=== PATIENT | male | born 1960 | race American Indian/Alaskan Native ===

== ENCOUNTER 2021-04-13 10:57 | Emergency (ER) | payer OTHER, MEDICAID ==
[2021-04-13 11:06] VITALS: BP 117/81
[2021-04-13] MEDS ORDERED: oxyCODONE /ACETAMINOPHEN 5-325MG TAB PO ONE (12:35)
[2021-04-13 13:25] LABS: Bacteria,Urine 2+ /HPF (Negative); Bilirubin,Urine NEG (Negative); Blood,Urine SM (Negative); Color,Urine Amber (Yellow); Mucus,Urine 2+ /HPF
--- NOTE | 2021-04-13 13:25 | Ultrasound Report ---
ULTRASOUND SCROTUM INDICATION / CLINICAL INFORMATION: left testicular pain. COMPARISON: None available. FINDINGS -- RIGHT: TESTIS: Size = 4.9 x 2.3 x 3.2 cm. - Appearance: Heterogeneous. - Cyst / Mass: None. - Color Doppler Flow: Increased at the testicle and epididymis. EPIDIDYMIS: Heterogeneous and enlarged. HYDROCELE: Mild/complex. VARICOCELE: None. FINDINGS -- LEFT: TESTIS: Size = 5.1 x 3.2 x 3.5 cm. - Appearance: Heterogeneous. - Cyst / Mass: None. - Color Doppler Flow: Heterogeneous and enlarged. EPIDIDYMIS: No significant abnormality. HYDROCELE: Mild/complex. VARICOCELE: None. ADDITIONAL FINDINGS: None. IMPRESSION: 1. Suspected bilateral epididymoorchitis. 2. Mild complex hydroceles bilaterally. Signer Name: Kye Hebert MD Signed: 04/13/2021 1:20 PM Workstation Name: [id number]
[2021-04-13 13:26] LABS: WBC,Urine > 182.0 /HPF (0.0-6.0)
[2021-04-13] MEDS ORDERED: LIDOCAINE-MPF (1%) 10 MG/1 ML VIAL 5 ML INFILTRATI ONE (13:52)
--- NOTE | 2021-04-13 13:57 | Emergency Department Report ---
ED General Adult HPI - General Chief complaint: Abdominal Pain Stated complaint: PENIS/GROIN Time Seen by Provider: 04/13/21 12:05 Source: patient Mode of arrival: Ambulatory Limitations: No Limitations - History of Present Illness Initial comments: 60-year-old -Italian male patient with history of hypertension presents with complaints of left testicular pain and swelling starting upon waking today. He rates his current pain as a 9/10 in severity. He denies any dysuria, hematuria, urinary frequency, penile discharge, abdominal pain, or lesions. No fever/chills/sweats or swollen hot joints per patient. He has not tried any medications for his symptoms. NKDA per patient. Severity scale (0 -10): 7 - Related Data Previous Rx's Medication Instructions Recorded Last Taken Type Acetaminophen/Codeine [Tylenol 1 tab PO Q6H PRN #10 tab 04/13/21 Unknown Rx /Codeine # 3 tab] Doxycycline Monohydrate 100 mg PO BID 10 Days #20 cap 04/13/21 Unknown Rx Ibuprofen [Motrin 800 MG tab] 800 mg PO Q8HR PRN #20 tablet 04/13/21 Unknown Rx levoFLOXacin [Levaquin TAB] 500 mg PO QDAY 7 Days #7 tablet 04/13/21 Unknown Rx metroNIDAZOLE [Flagyl] 2,000 mg PO ONCE 1 Days #4 tab 04/13/21 Unknown Rx Allergies Allergy/AdvReac Type Severity Reaction Status Date / Time No Known Allergies Allergy Verified 04/13/21 11:03 ED Review of Systems ROS: Stated complaint: PENIS/GROIN Other details as noted in HPI Constitutional: denies: chills, fever, malaise Gastrointestinal: denies: abdominal pain, nausea, vomiting, other (Denies rectal pain) Genitourinary: testicular pain, testicular mass. denies: urgency, dysuria, frequency, hematuria, discharge Musculoskeletal: denies: back pain Hematological/Lymphatic: denies: swollen glands ED Past Medical Hx - Medications Home Medications: Home Medications Medication Instructions Recorded Confirmed Last Taken Type Acetaminophen/Codeine [Tylenol 1 tab PO Q6H PRN #10 tab 04/13/21 Unknown Rx /Codeine # 3 tab] Doxycycline Monohydrate 100 mg PO BID 10 Days #20 cap 04/13/21 Unknown Rx Ibuprofen [Motrin 800 MG tab] 800 mg PO Q8HR PRN #20 tablet 04/13/21 Unknown Rx levoFLOXacin [Levaquin TAB] 500 mg PO QDAY 7 Days #7 tablet 04/13/21 Unknown Rx metroNIDAZOLE [Flagyl] 2,000 mg PO ONCE 1 Days #4 tab 04/13/21 Unknown Rx ED Physical Exam - General Limitations: No Limitations General appearance: alert, in no apparent distress - Head Head exam: Present: atraumatic, normocephalic - Eye Eye exam: Present: normal appearance - Respiratory Respiratory exam: Absent: respiratory distress - Cardiovascular Cardiovascular Exam: Present: regular rate - GI/Abdominal GI/Abdominal exam: Present: soft. Absent: tenderness - exam: Present: testicular tenderness, urethral discharge, scrotal swelling (Moderate swelling noted to left testicle with mild swelling to the right testicle) External exam: Absent: erythema, lesions - Neurological Exam Neurological exam: Present: alert, oriented X3 - Psychiatric Psychiatric exam: Present: normal affect, normal mood - Skin Skin exam: Present: warm, dry, intact, normal color. Absent: rash ED Course Vital Signs 04/13/21 11:04 Temperature 98.4 F Pulse Rate 96 H Respiratory 16 Rate Blood Pressure 117/81 O2 Sat by Pulse 98 Oximetry ED Medical Decision Making - Radiology Data Radiology results: report reviewed ULTRASOUND SCROTUM INDICATION / CLINICAL INFORMATION: left testicular pain. COMPARISON: None available. FINDINGS -- RIGHT: TESTIS: Size = 4.9 x 2.3 x 3.2 cm. - Appearance: Heterogeneous. - Cyst / Mass: None. - Color Doppler Flow: Increased at the testicle and epididymis. EPIDIDYMIS: Heterogeneous and enlarged. HYDROCELE: Mild/complex. VARICOCELE: None. FINDINGS -- LEFT: TESTIS: Size = 5.1 x 3.2 x 3.5 cm. - Appearance: Heterogeneous. - Cyst / Mass: None. - Color Doppler Flow: Heterogeneous and enlarged. EPIDIDYMIS: No significant abnormality. HYDROCELE: Mild/complex. VARICOCELE: None. ADDITIONAL FINDINGS: None. IMPRESSION: 1. Suspected bilateral epididymoorchitis. 2. Mild complex hydroceles bilaterally. - Medical Decision Making 60-year-old -Italian male patient with history of hypertension presents with complaints of left testicular pain and swelling starting upon waking today. He rates his current pain as a 9/10 in severity. He denies any dysuria, hematuria, urinary frequency, penile discharge, abdominal pain, or lesions. No fever/chills/sweats or swollen hot joints per patient. He has not tried any medications for his symptoms. NKDA per patient. UA shows >182 WBCs with positive nitrites. Ultrasound shows bilateral epididymoorchitis and complex hydroceles. Patient covered for gonorrhea and chlamydia and also discharged with levoquin given nitrites. He is to follow-up with urology given the complex hydroceles noted on ultrasound within 3 to 5 days. Discussed with patient refraining from sexual intercourse for 3 weeks and informing his partner to get tested and treated. He is otherwise well- appearing, his vitals are normal, he is stable for discharge home. Strict return precautions were discussed in detail with patient who verbalizes understanding. Patient also advised to give full STI testing with his primary care doctor or the health department within 3 days and also to have his partner tested and treated Critical care attestation.: If time is entered above; I have spent that time in minutes in the direct care of this critically ill patient, excluding procedure time. ED Disposition Clinical Impression: Epididymoorchitis Disposition: 01 HOME / SELF CARE / HOMELESS Is pt being admited?: No Condition: Stable Instructions: Orchitis, Epididymitis, Epididymitis (ED) Prescriptions: Doxycycline Monohydrate 100 mg PO BID 10 Days #20 cap metroNIDAZOLE [Flagyl] 2,000 mg PO ONCE 1 Days #4 tab levoFLOXacin [Levaquin TAB] 500 mg PO QDAY 7 Days #7 tablet Ibuprofen [Motrin 800 MG tab] 800 mg PO Q8HR PRN #20 tablet PRN Reason: Pain, Moderate (4-6) Acetaminophen/Codeine [Tylenol /Codeine # 3 tab] 1 tab PO Q6H PRN #10 tab PRN Reason: Pain , Severe (7-10) Referrals: ABEL HAQUE MD [Staff Physician] - 3-5 Days KP HARRY MD [Staff Physician] - 3-5 Days Forms: STI Treatment and Prevention, Work/School Release Form(ED)
== END 2021-04-13 16:05 | disposition home or self-care (01) ==
LOC: ED 10:57
DX: N45.3 Epididymo-orchitis (principal)
CPT/HCPCS: 81001; 93975; 96372; 99284; J0696; J3490